=== PATIENT | female | born 1975 | race Two or more races ===

== ENCOUNTER 2016-10-31 14:08 | Emergency (ER) | payer SELFPAY ==
[2016-10-31 15:05] VITALS: TEMP 98.2; BMI 33.6
[2016-10-31 17:28] LABS: BLOOD UREA NITROGEN 9 MG/DL (7-17); CALCIUM 9.2 MG/DL (8.4-10.2); CALCULATED OSMOLALITY 265 MOs/Kg (270-290); CHLORIDE 103 mEq/L (98-107); GLUCOSE 93 MG/DL (70-99); SODIUM LEVEL 138 mEq/L (137-146)
--- NOTE | 2016-10-31 18:22 | EDPRACDOC ---
- General Information Chief Complaint: Vaginal Bleeding Stated Complaint: VAGINAL BLEED Time Seen by Provider: 10/31/16 17:57 Information Source: Patient, Family Home Medications: Home Medications Hydrocodone Bit/Acetaminophen [Lortab 5/325] 1 tab PO Q6H PRN #14 tab 03/18/16 Naproxen [Naprosyn] 500 mg PO BID PRN 03/18/16 Prednisone [Deltasone, Orasone] 10 mg PO DIR 03/18/16 Ibuprofen Tablet [Motrin] 800 mg PO TID #30 tab 10/31/16 Medroxyprogesterone Acetate [Provera] 10 mg PO DAILY #10 tablet 10/31/16 Allergies/Adverse Reactions: Allergies Allergy/AdvReac Type Severity Reaction Status Date / Time No Known Allergies Allergy Verified 10/31/16 15:05 - History of Present Illness Onset: 10 DAYS HPI: PATIENT HAS HAD VAGINAL BLEEDING USING APPROXIMATELY 1 2 PADS PER DAY FOR THE PAST 10 DAYS. PRIOR TO THIS SHE DID NOT HAVE A MENSTRUAL CYCLE FOR 5 MONTHS. SHE IS STATUS POST BILATERAL TUBAL LIGATION. FOR THE PAST 3 4 DAYS HE HAS HAD BILATERAL LOWER QUADRANT ABDOMINAL PAIN WORSE ON THE LEFT. ED Past Medical History - History Reviewed Yes Nurses notes reviewed and agree except as marked - Patient Medical History Cardiac History: Reports: Hypercholesterolemia Psychological History: Denies: Depression Additional Past Medical History: SPINAL COMPRESSION FX Additional Past Surgical History: BILATERAL TUBAL LIGATION - Social Medical History Smoking Status: Never smoker EDM Review of Systems - Review of Systems ROS Negative Except as Marked: Yes All systems reviewed and were negative except as marked - Physical Exam Constitutional: No apparent distress, Alert Oriented to: Time, Person, Place Last recorded Vital Signs: Last Vital Signs Temp 98.2 F 10/31/16 15:05 Pulse 64 10/31/16 17:29 Resp 18 10/31/16 17:29 BP 121/77 10/31/16 17:29 Pulse Ox 99 10/31/16 17:29 Oxygen Pulse Oxygen Saturation 99 O2 Device Room Air Oxygen Flow Rate Fraction of Inspired Oxygen ( FIO2) - HEENT Eye Exam: Normal. negative: Pale Conjunctiva, Scleral Icterus Oropharynx: Normal. negative: Membranes Dry Neck: Normal - Respiratory/Cardiovascular Respiratory: Normal - CTA Cardiovascular: Normal - GI Auscultation: Normal Palpation: Normal Tenderness: Non tender Palmer's Sign: Negative - External: Normal Vagina: Blood (SCANT). negative: Discharge, Lesions Cervix: Blood (SMALL AMOUNT). negative: Discharge, Tissue, Tenderness Uterus: Normal size Adnexa: Bilateral: Normal - Neurologic Memory Impaired: Normal Mood Description: Normal - Results 10/31/16 17:00 10/31/16 17:00 WBC 11.8 xk/uL (3.8-10.8) H 10/31/16 17:00 RBC 4.60 xM/uL (4.20-5.40) 10/31/16 17:00 Hgb 13.2 g/dL (12.0-16.0) 10/31/16 17:00 Hct 40.0 % (36-47) 10/31/16 17:00 MCV 87 fL (81-99) 10/31/16 17:00 MCH 28.7 pg (27-32) 10/31/16 17:00 MCHC 33.0 g/dl (33-36) 10/31/16 17:00 RDW 14.3 % (11.5-14.5) 10/31/16 17:00 Plt Count 472 xk/uL (130-400) H 10/31/16 17:00 MPV 7.0 fL (7.4-10.4) L 10/31/16 17:00 Sodium 138 mEq/L (137-146) 10/31/16 17:00 Potassium 3.8 mEq/L (3.5-5.1) 10/31/16 17:00 Chloride 103 mEq/L (98-107) 10/31/16 17:00 Carbon Dioxide 28 mMOL/L (22-33) 10/31/16 17:00 Anion Gap 11 mEq/L (8-16) 10/31/16 17:00 BUN 9 MG/DL (7-17) 10/31/16 17:00 Creatinine 0.60 MG/DL (0.52-1.04) 10/31/16 17:00 Estimated GFR (MDRD) > 60 mL/min (>=60) 10/31/16 17:00 Glucose 93 MG/DL (70-99) 10/31/16 17:00 Calculated Osmolality 265 MOs/Kg (270-290) L 10/31/16 17:00 Calcium 9.2 MG/DL (8.4-10.2) 10/31/16 17:00 Lab Results 10/31/16 10/31/16 17:00 17:00 WBC 11.8 H RBC 4.60 Hgb 13.2 Hct 40.0 MCV 87 MCH 28.7 MCHC 33.0 RDW 14.3 Plt Count 472 H MPV 7.0 L Sodium 138 Potassium 3.8 Chloride 103 Carbon Dioxide 28 Anion Gap 11 BUN 9 Creatinine 0.60 Estimated GFR (MDRD) > 60 Glucose 93 Calculated Osmolality 265 L Calcium 9.2 - Departure Final Diagnosis: Dysfunctional uterine bleeding Instructions: Dysfunctional Uterine Bleeding (ED) Education/Counseling Given To: Patient, Family Member Education/Counseling Given Regarding: Diagnosis, Treatment, Prognosis Prescriptions: Ibuprofen Tablet [Motrin] 800 mg PO TID #30 tab Medroxyprogesterone Acetate [Provera] 10 mg PO DAILY #10 tablet Additional Instructions: Return to the Emergency Deparment for increasing or different abdominal pain, vaginal bleeding that soaks two pads per hour for two hours, feeling like you might pass out, or any concerns.
[2016-10-31 18:38] LABS: LEUKOCYTES/URINE NEG (NEGATIVE); NITRITE/URINE NEG (NEGATIVE); RBC/URINE 0-2 (0-5); URINE OCCULT BLOOD 1+ (NEG/TRACE); WBC/URINE 0-2 (0-5)
[2016-10-31 19:22] VITALS: BP 127/76; PULSE 60
[2016-11-03 07:40] LABS: CHLAMY BY NUCLEIC ACID AMP Negative (Negative)
[2016-11-03 08:43] LABS: GC BY NUCLEIC ACID AMP Negative (Negative)
== END 2016-10-31 19:20 | disposition home or self-care (01) ==
LOC: ED 14:08
DX: N93.8 Other specified abnormal uterine and vaginal bleeding (principal)
CPT/HCPCS: 36415; 80048; 81001; 81025; 85027; 87210; 87220; 87491; 87591; 99284